=== PATIENT | female | born 1995 | race Caucasian/White ===

== ENCOUNTER → 2016-10-31 | Outpatient (CLI) | payer OTHER | END | disposition disaster alternative care site (69) | LOC: GRAD 15:30 | DX: Z33.1 Pregnant state, incidental (principal); Z3A.09 9 weeks gestation of pregnancy ==

== ENCOUNTER → 2017-01-17 | Outpatient (CLI) | payer OTHER | END | disposition disaster alternative care site (69) | LOC: GRAD 13:54 | DX: Z33.1 Pregnant state, incidental (principal); Z3A.20 20 weeks gestation of pregnancy ==